=== PATIENT | female | born 1955 | race Caucasian/White ===

== ENCOUNTER 2016-11-28 10:59 | Outpatient (CLI) | payer MEDICARE, OTHER | END 2016-11-28 11:00 | disposition home or self-care (01) | DX: Z00.00 Encounter for general adult medical examination without abnormal findings (principal); Z80.0 Family history of malignant neoplasm of digestive organs; E66.09 Other obesity due to excess calories ==

== ENCOUNTER 2017-03-14 08:00 | Outpatient (CLI) | payer MEDICARE, OTHER ==
[2017-03-14 20:15] LABS: BASOPHILS % (AUTO) 0.6 %; EOSINOPHILS % (AUTO) 0.6 %; HCT - HEMATOCRIT 43.3 % (37.0-47.0); HGB - HEMOGLOBIN 14.7 g/dL (12.0-16.0); LYMPHOCYTES # (AUTO) 1.2 10^3/uL (1.5-3.5); LYMPHOCYTES % (AUTO) 29.6 %; MEAN CORPUSCULAR HEMOGLOBIN 30.1 pg (27.0-31.0); MEAN CORPUSCULAR HGB CONC 33.9 g/dL (32.0-36.0); MEAN CORPUSCULAR VOLUME 88.9 fL (81.0-99.0); MEAN PLATELET VOLUME 8.6 fL (7.9-10.8); MONOCYTES # (AUTO) 0.3 10^3/uL (0.0-1.0); MONOCYTES % (AUTO) 6.9 %; NEUTROPHILS # (AUTO) 2.6 10^3/uL (1.5-6.6); NEUTROPHILS % (AUTO) 62.3 %; RED BLOOD COUNT 4.88 10^6/uL (4.20-5.40); UNCORRECTED WHITE BLOOD COUNT 4.1 x10^3/uL; WHITE BLOOD COUNT 4.1 x10^3/uL (4.8-10.8)
[2017-03-14 20:40] LABS: CHOL/HDL RATIO 4.2 (<4.4); CHOLESTEROL 246 mg/dL; HDL CHOLESTEROL 58 mg/dL; IRON 104 ug/dL (28-170); LDL/HDL RATIO 2.8 (<4.4); TOTAL IRON BINDING CAPACITY 347 ug/dL (250-450); TRANSFERRIN 248 mg/dL (192-382); TRIGLYCERIDES 124 mg/dL; VLDL CHOLESTEROL 25 mg/dL
[2017-03-14 21:03] LABS: FERRITIN 35.1 ng/mL (11.0-306.8)
[2017-03-14 21:06] LABS: FOLATE 16.83 ng/mL (5.90 - >24.8)
[2017-03-14 21:14] LABS: THYROID STIMULATING HORMONE 0.7 uIU/mL (0.34-5.60)
[2017-03-16 15:56] LABS: ACETYLCHOL REC BINDING AB <0.30 nmol/L (())
[2017-03-29 12:56] LABS: TEST RESULT REPORT (())
== END 2017-03-14 08:01 | disposition home or self-care (01) ==
LOC: LAB.WCP 08:00
PROVIDERS: ATTEND Physician Assistant Medical
DX: C50.919 Malignant neoplasm of unspecified site of unspecified female breast (principal); I10 Essential (primary) hypertension; H53.2 Diplopia; R53.83 Other fatigue; E78.00 Pure hypercholesterolemia, unspecified; M62.81 Muscle weakness (generalized)
CPT/HCPCS: 36415; 80061; 81401; 81599; 82607; 82728; 82746; 83519; 83540; 84443; 84466; 85025; 86300

== ENCOUNTER 2017-08-22 13:59 | Outpatient (CLI) | payer MEDICARE, OTHER ==
[2017-08-22 19:03] LABS: BASOPHILS % (AUTO) 0.7 %; EOSINOPHILS # (AUTO) 0.1 10^3/uL (0.0-0.7); EOSINOPHILS % (AUTO) 2.4 %; HCT - HEMATOCRIT 45.7 % (37.0-47.0); HGB - HEMOGLOBIN 15.1 g/dL (12.0-16.0); LYMPHOCYTES # (AUTO) 1.3 10^3/uL (1.5-3.5); LYMPHOCYTES % (AUTO) 23.4 %; MEAN CORPUSCULAR HEMOGLOBIN 29.8 pg (27.0-31.0); MEAN CORPUSCULAR HGB CONC 33.1 g/dL (32.0-36.0); MEAN CORPUSCULAR VOLUME 89.9 fL (81.0-99.0); MEAN PLATELET VOLUME 8.7 fL (7.9-10.8); MONOCYTES # (AUTO) 0.4 10^3/uL (0.0-1.0); MONOCYTES % (AUTO) 6.9 %; NEUTROPHILS # (AUTO) 3.6 10^3/uL (1.5-6.6); NEUTROPHILS % (AUTO) 66.6 %; NUCLEATED RED BLOOD CELLS AUTO 0.1 /100WBC; RED BLOOD COUNT 5.09 10^6/uL (4.20-5.40); RED CELL DISTRIBUTION WIDTH 12.8 % (12.0-15.0); UNCORRECTED WHITE BLOOD COUNT 5.4 x10^3/uL; WHITE BLOOD COUNT 5.4 x10^3/uL (4.8-10.8)
[2017-08-22 19:13] LABS: ALBUMIN/GLOBULIN RATIO 1.4 (1.0-2.2); AMYLASE 74 U/L (28-100); BILIRUBIN,TOTAL 1.2 mg/dL (0.2-1.0); BUN - BLOOD UREA NITROGEN 26 mg/dL (6-20); CALCIUM 9.3 mg/dL (8.5-10.3); CARBON DIOXIDE - CO2 27 mmol/L (21-32); CHLORIDE 105 mmol/L (101-111); CREATININE 0.7 mg/dL (0.4-1.0); GFR - MDRD 85 (>89); GLUCOSE 127 mg/dL (70-100); LIPASE 40 U/L (22-51); POTASSIUM 3.3 mmol/L (3.5-5.0); SODIUM 142 mmol/L (135-145); TOTAL PROTEIN 7.7 g/dL (6.7-8.2)
== END 2017-08-22 23:59 ==
LOC: LAB.WCP 13:59
PROVIDERS: ATTEND Physician Assistant Medical
DX: R19.7 Diarrhea, unspecified (principal); R10.13 Epigastric pain; E55.9 Vitamin D deficiency, unspecified
CPT/HCPCS: 36415; 80053; 82150; 82306; 83690; 84443; 85025

== ENCOUNTER 2017-09-07 14:39 | Outpatient (CLI) | payer MEDICARE ==
--- NOTE | 2017-09-07 16:14 | CT Report ---
DATE OF SERVICE: 09/07/[address] NONCONTRAST: 09/07/2017 COMPARISON: None. INDICATION: Six to eight weeks of headache across the eyes then pain in the right ear. Chronic sinusitis. Apnea. TECHNIQUE: Noncontrast axial imaging of the paranasal sinuses with coronal and sagittal reformats. FINDINGS: There is minimal mucosal thickening of the maxillary sinuses. The ethmoid, frontal, and sphenoid sinuses appear clear. The mastoid air cells appear well aerated No acute fracture seen within the field of view. The soft tissues and orbits appear grossly unremarkable. There is a minimal rightward spur of the bony nasal septum. Limited base of the brain appears unremarkable. IMPRESSION: MINIMAL BILATERAL MAXILLARY SINUSITIS. In accordance with CT protocol optimization, one or more of the following dose reduction techniques were utilized for this exam: automated exposure control, adjustment of mA and/or KV based on patient size, or use of iterative reconstructive technique. TD: 09/07/2017 16:57 MTDD
== END 2017-09-07 14:40 | disposition home or self-care (01) ==
LOC: DI 14:39
PROVIDERS: ATTEND Physician Assistant Medical
DX: J32.0 Chronic maxillary sinusitis (principal)
CPT/HCPCS: 70486

== ENCOUNTER 2019-03-16 13:51 | Outpatient (CLI) | payer MEDICARE, OTHER ==
[2019-03-16 14:18] LABS: BILIRUBIN,URINE NEGATIVE (NEGATIVE); GLUCOSE, URINE (UA) NEGATIVE (NEGATIVE); KETONES,URINE (UA) NEGATIVE (NEGATIVE); LEUKOCYTE ESTERASE, URINE NEGATIVE (NEGATIVE); NITRITE,URINE NEGATIVE (NEGATIVE); OCCULT BLOOD,URINE NEGATIVE (NEGATIVE); PROTEIN,URINE NEGATIVE (NEGATIVE); UROBILINOGEN,URINE 0.2 (NORMAL) E.U./dL (NORMAL)
[2019-03-16 14:25] LABS: CLARITY,URINE CLEAR (CLEAR)
[2019-03-16 14:26] LABS: BASOPHILS % (AUTO) 0.6 %; EOSINOPHILS # (AUTO) 0.1 10^3/uL (0.0-0.7); EOSINOPHILS % (AUTO) 1.9 %; HGB - HEMOGLOBIN 14.2 g/dL (12.0-16.0); LYMPHOCYTES % (AUTO) 30.9 %; MEAN CORPUSCULAR HEMOGLOBIN 29.8 pg (27.0-31.0); MEAN CORPUSCULAR HGB CONC 33.3 g/dL (32.0-36.0); MEAN CORPUSCULAR VOLUME 89.3 fL (81.0-99.0); MEAN PLATELET VOLUME 10.4 fL (7.9-10.8); MONOCYTES # (AUTO) 0.6 10^3/uL (0.0-1.0); MONOCYTES % (AUTO) 9.1 %; NEUTROPHILS # (AUTO) 3.6 10^3/uL (1.5-6.6); NEUTROPHILS % (AUTO) 57.2 %; PLT - PLATELET COUNT 183 10^3/uL (130-450); RED BLOOD COUNT 4.77 10^6/uL (4.20-5.40); WHITE BLOOD COUNT 6.4 x10^3/uL (4.8-10.8)
[2019-03-16 14:44] LABS: ALBUMIN 3.8 g/dL (3.2-5.5); ALBUMIN/GLOBULIN RATIO 1.3 (1.0-2.2); ALKALINE PHOSPHATASE 57 IU/L (42-121); ALT ALANINE AMINOTRANSFERASE 27 IU/L (10-60); AST ASPARTATE AMINOTRANSFERASE 18 IU/L (10-42); BUN - BLOOD UREA NITROGEN 21 mg/dL (6-20); CALCIUM 8.5 mg/dL (8.5-10.3); CARBON DIOXIDE - CO2 27 mmol/L (21-32); CHLORIDE 105 mmol/L (101-111); CHOL/HDL RATIO 3.8 (<4.4); CHOLESTEROL 196 mg/dL; CREATININE 0.7 mg/dL (0.4-1.0); GFR - MDRD 84 (>89); GLUCOSE 107 mg/dL (70-100); HDL CHOLESTEROL 52 mg/dL; LDL CHOLESTEROL,CALCULATED 125 mg/dL; LDL/HDL RATIO 2.4 (<4.4); SODIUM 143 mmol/L (135-145); TOTAL PROTEIN 6.8 g/dL (6.7-8.2); VLDL CHOLESTEROL 19 mg/dL
== END 2019-03-16 13:52 | disposition home or self-care (01) ==
LOC: LAB 13:51
PROVIDERS: ATTEND Internal Medicine
DX: I10 Essential (primary) hypertension (principal); M25.50 Pain in unspecified joint; Z79.899 Other long term (current) drug therapy
CPT/HCPCS: 36415; 80053; 80061; 81001; 81003; 83721; 84443; 85025

== ENCOUNTER 2019-06-19 13:33 | Outpatient (CLI) | payer MEDICARE, OTHER ==
--- NOTE | 2019-06-20 08:24 | Ultrasound Report ---
Reason: LUQ PAIN Procedure Date: 06/19/2019 Accession Number: [id number] / [id number] Procedure: US - Abdomen Complete CPT Code: FULL RESULT: EXAM: ABDOMEN ULTRASOUND EXAM DATE: 06/19/2019 02:35 PM. CLINICAL HISTORY: LUQ PAIN. COMPARISON: Abdominal pelvic CT 09/17/2014. TECHNIQUE: Real-time scanning was performed with static images obtained. FINDINGS: Liver: The liver parenchyma is mild to moderately echogenic diffusely. No evidence for cirrhosis, mass lesion or abnormal blood flow. The right lobe measures 14.2 cm. Main portal vein flow: Hepatopetal. Gallbladder: Surgically absent. Biliary System: Common bile duct measures 10 mm. Probable compensatory dilatation evident. No obstructing stone or mass evident. Pancreas: Visualized portion is unremarkable. Kidneys: Right: 11.0 cm longitudinally. Normal. No contour-deforming mass, stones, or hydronephrosis. Left: 10.4 cm longitudinally. Normal. No contour-deforming mass, stones, or hydronephrosis. Spleen: 8.5 cm. Normal in size and echotexture. Aorta and Inferior Vena Cava: Unremarkable. Other: None. IMPRESSION: 1. Status post cholecystectomy with compensatory ability ductal dilatation. 2. Mild to moderately fatty infiltrated liver. 3. Spleen and left kidney within normal limits. RADIA
--- NOTE | 2019-06-20 14:57 | MRI Report ---
Reason: UNSP JOINT PAIN Procedure Date: 06/19/2019 Accession Number: [id number] / [id number] Procedure: MRI - Shoulder RT W/O CPT Code: FULL RESULT: EXAM: RIGHT SHOULDER MRI WITHOUT CONTRAST EXAM DATE: 06/19/2019 03:26 PM. CLINICAL HISTORY: Right shoulder pain. Limited range of motion. COMPARISON: None. TECHNIQUE: Multiplanar, multisequence T1-weighted and fluid-sensitive sequences of the shoulder without contrast. Other: None. FINDINGS: Acromioclavicular Region: The acromion is type II. Mild acromioclavicular joint osteoarthritis with subchondral edema and small marginal osteophytes at the distal clavicle and acromion. The coracoacromial and coracoclavicular ligaments are intact. Small amount of fluid within the subacromial-subdeltoid bursa. Glenohumeral Region: No subluxation. No effusion or loose bodies. The articular cartilage is unremarkable. The joint capsule is thickened at the axillary recess, with pericapsular edema. Mild edema of the subcoracoid fat. Glenohumeral ligaments are unremarkable. Bone Marrow: No fracture, marrow edema or bone lesions. Labrum: The labrum is unremarkable on this nonarthrographic study. Musculature/Rotator Cuff: 3 x 8 mm intrasubstance tear of the distal supraspinatus tendon at the footprint, with mild superimposed tendinosis. No surfacing supraspinatus tear. Mild infraspinatus tendinosis without tear. Subscapularis and teres minor are normal. No edema or fatty atrophy. Biceps Tendon: The long head of the biceps tendon and biceps wilmer are intact. Other: The subcutaneous tissues are unremarkable. IMPRESSION: 1. Mild supraspinatus and infraspinatus tendinosis, with a 3 x 8 mm intrasubstance tear of the distal supraspinatus tendon at the footprint. No surfacing rotator cuff tendon tear. 2. Thickening of the joint capsule at the axillary recess with pericapsular edema, as well as mild edema within the subcoracoid fat, suggestive of adhesive capsulitis. 3. Mild subacromial-subdeltoid bursitis. 4. Mild acromioclavicular joint osteoarthritis. RADIA
--- NOTE | 2019-06-20 15:04 | MRI Report ---
Reason: CERVICALGIA Procedure Date: 06/19/2019 Accession Number: [id number] / [id number] Procedure: MRI - Cervical Spine W/O CPT Code: FULL RESULT: EXAM: MRI CERVICAL SPINE WITHOUT CONTRAST EXAM DATE: 06/19/2019 03:33 PM. CLINICAL HISTORY: Neck and shoulder pain. COMPARISONS: 11/08/2015 cervical spine MRI.. TECHNIQUE: Multiplanar, multisequence T1-weighted and fluid-sensitive sequences of the cervical spine without contrast. Other: None. FINDINGS: Neurologic Structures: The visualized posterior fossa structures are unremarkable. No signal abnormality in the visualized spinal cord. Alignment: No scoliosis or spondylolisthesis. Bone Marrow: No fractures. No osseous lesions. Minimal Modic type I endplate degenerative changes throughout the cervical spine. Interspace Levels/Facets: C1-C2: Unremarkable. C2-C3: Moderate right facet arthropathy. Shallow central disk protrusion. No central canal or foraminal stenosis. C3-C4: Asymmetric left uncovertebral hypertrophy and moderate left facet arthropathy results in moderate left foraminal stenosis. Mild right foraminal stenosis. Partial effacement of ventral CSF without mass effect upon the cord. C4-C5: Mild intervertebral disk height loss. Shallow broad-based disk-osteophyte complex effaces the ventral CSF and minimally flattens the cord in the midline. Partial effacement of the dorsal CSF. Mild bilateral facet arthropathy. Moderate bilateral foraminal stenosis. C5-C6: Mild intervertebral disk height loss. Shallow broad-based disk-osteophyte complex with asymmetric right uncovertebral hypertrophy partially effaces the ventral CSF and minimally flattens the ventral cord. Moderate right and mild left foraminal stenosis. C6-C7: Mild intervertebral disk height loss. Shallow broad-based disk bulge effaces the ventral CSF and minimally flattens the ventral cord. Mild bilateral foraminal stenosis. C7-T1: No disk bulge or protrusion. Moderate facet arthropathy. No central canal or foraminal stenosis. Musculature: Normal. No edema or fatty atrophy. Other: The paravertebral and prevertebral soft tissues are normal. IMPRESSION: Progressive multilevel cervical degenerative disk disease and facet arthropathy, with broad-based disk-osteophyte complexes at C4-C5, C5-C6, and C6-C7 that efface the ventral CSF and minimally flatten the ventral cord. Moderate left C3-C4, bilateral C4-C5, and right C5-C6 foraminal stenosis. RADIA
== END 2019-06-19 13:34 | disposition home or self-care (01) ==
LOC: DI 13:33
PROVIDERS: ATTEND Internal Medicine
DX: M19.90 Unspecified osteoarthritis, unspecified site (principal); M75.101 Unspecified rotator cuff tear or rupture of right shoulder, not specified as traumatic; R60.0 Localized edema; M75.51 Bursitis of right shoulder; M19.011 Primary osteoarthritis, right shoulder; M50.21 Other cervical disc displacement, high cervical region; M47.812 Spondylosis without myelopathy or radiculopathy, cervical region; M50.321 Other cervical disc degeneration at C4-C5 level; M48.02 Spinal stenosis, cervical region; K76.0 Fatty (change of) liver, not elsewhere classified; Z90.49 Acquired absence of other specified parts of digestive tract
CPT/HCPCS: 72141; 76700

== ENCOUNTER 2019-06-23 16:20 | Outpatient (CLI) | payer MEDICARE, OTHER ==
[2019-06-23 16:50] LABS: BASOPHILS % (AUTO) 0.5 %; EOSINOPHILS % (AUTO) 0.6 %; HGB - HEMOGLOBIN 15.7 g/dL (12.0-16.0); LYMPHOCYTES # (AUTO) 1.8 10^3/uL (1.5-3.5); LYMPHOCYTES % (AUTO) 27.5 %; MEAN CORPUSCULAR HEMOGLOBIN 30.5 pg (27.0-31.0); MEAN CORPUSCULAR HGB CONC 34.1 g/dL (32.0-36.0); MEAN CORPUSCULAR VOLUME 89.5 fL (81.0-99.0); MONOCYTES # (AUTO) 0.5 10^3/uL (0.0-1.0); MONOCYTES % (AUTO) 7.4 %; NEUTROPHILS # (AUTO) 4.1 10^3/uL (1.5-6.6); NEUTROPHILS % (AUTO) 63.8 %; PLT - PLATELET COUNT 195 10^3/uL (130-450); RED BLOOD COUNT 5.14 10^6/uL (4.20-5.40); RED CELL DISTRIBUTION WIDTH 12.5 % (12.0-15.0); WHITE BLOOD COUNT 6.5 x10^3/uL (4.8-10.8)
[2019-06-23 16:52] LABS: BILIRUBIN,URINE NEGATIVE (NEGATIVE); GLUCOSE, URINE (UA) NEGATIVE (NEGATIVE); KETONES,URINE (UA) 15 mg/dL (NEGATIVE); LEUKOCYTE ESTERASE, URINE NEGATIVE (NEGATIVE); NITRITE,URINE NEGATIVE (NEGATIVE); OCCULT BLOOD,URINE NEGATIVE (NEGATIVE); PH,URINE 6.5 PH (5.0-7.5); PROTEIN,URINE NEGATIVE (NEGATIVE); UROBILINOGEN,URINE 0.2 (NORMAL) E.U./dL (NORMAL)
[2019-06-23 16:58] LABS: CALCIUM 9.3 mg/dL (8.5-10.3); CREATININE 0.8 mg/dL (0.4-1.0)
[2019-06-23 17:01] LABS: CLARITY,URINE CLEAR (CLEAR)
== END 2019-06-23 16:21 | disposition home or self-care (01) ==
LOC: LAB 16:20
PROVIDERS: ATTEND Internal Medicine
DX: I10 Essential (primary) hypertension (principal); G25.81 Restless legs syndrome
CPT/HCPCS: 36415; 80048; 81003; 85025; 85651

== ENCOUNTER 2019-07-25 14:00 | Outpatient (CLI) | payer MEDICARE, OTHER ==
[2019-07-25 14:51] LABS: HB2 TOTAL 15.1 g/dL; HEMOGLOBIN A1C 0.61 g/dL; HEMOGLOBIN A1C % 5.8 % (4.6-6.2)
[2019-07-25 15:09] LABS: ALBUMIN 4.1 g/dL (3.2-5.5); ALBUMIN/GLOBULIN RATIO 1.2 (1.0-2.2); ALKALINE PHOSPHATASE 56 IU/L (42-121); ALT ALANINE AMINOTRANSFERASE 34 IU/L (10-60); AST ASPARTATE AMINOTRANSFERASE 20 IU/L (10-42); BILIRUBIN,TOTAL 0.9 mg/dL (0.2-1.0); BUN - BLOOD UREA NITROGEN 18 mg/dL (6-20); CALCIUM 8.9 mg/dL (8.5-10.3); CARBON DIOXIDE - CO2 26 mmol/L (21-32); CHLORIDE 106 mmol/L (101-111); CHOL/HDL RATIO 4.4 (<4.4); CHOLESTEROL 210 mg/dL; CREATININE 0.7 mg/dL (0.4-1.0); GFR - MDRD 84 (>89); GLUCOSE 99 mg/dL (70-100); HDL CHOLESTEROL 48 mg/dL; LDL CHOLESTEROL,CALCULATED 136 mg/dL; LDL/HDL RATIO 2.8 (<4.4); SODIUM 142 mmol/L (135-145); TOTAL PROTEIN 7.6 g/dL (6.7-8.2); VLDL CHOLESTEROL 26 mg/dL
[2019-07-25 15:58] LABS: THYROID STIMULATING HORMONE 0.67 uIU/mL (0.34-5.60)
[2019-07-25 16:00] LABS: FREE T4 (FREE THYROXINE) 0.92 ng/dL (0.58-1.64)
== END 2019-07-25 14:01 | disposition home or self-care (01) ==
LOC: LAB 14:00
PROVIDERS: ATTEND Nurse Practitioner
DX: Z79.899 Other long term (current) drug therapy (principal); R73.01 Impaired fasting glucose; R53.83 Other fatigue; F32.9 Major depressive disorder, single episode, unspecified
CPT/HCPCS: 36415; 80053; 80061; 83036; 83721; 84439; 84443; 84481

== ENCOUNTER 2019-10-14 07:09 | Outpatient (CLI) | payer MEDICARE, OTHER | END 2019-10-14 07:10 | disposition home or self-care (01) | LOC: LAB 07:09 | PROVIDERS: ATTEND Nurse Practitioner | DX: Z79.899 Other long term (current) drug therapy (principal); R53.83 Other fatigue; E55.9 Vitamin D deficiency, unspecified | CPT/HCPCS: 36415; 82306; 82607 ==